=== PATIENT | female | born 1970 | race Caucasian/White ===

== ENCOUNTER 2017-10-12 21:54 | Inpatient (IN) | payer OTHER ==
[~2017-10-12] VITALS: Ht 160 cm; Wt 110.0 kg
[2017-10-13] VITALS (8 sets, daily range): BP systolic 97–111; BP diastolic 53–71; PULSE 75–82; RESP 16–20; Ht 160 cm; Wt 110.0 kg
[2017-10-13] MEDS ORDERED: ONDANSETRON 4 MG TAB PO PRN (02:30)
[2017-10-13] MEDS ORDERED: NACL 0.9% 3 ML SYG IV SCH (02:30)
[2017-10-13] MEDS ORDERED: NITROGLYCERIN (SL) 0.4 MG TAB SL PRN (02:30)
[2017-10-13] MEDS ORDERED: morphine 2 MG INJ IV PRN (02:30)
[2017-10-13] MEDS ORDERED: ACETAMINOPHEN 325 MG TAB PO PRN (02:30)
[2017-10-13 03:04] LABS: BASOPHILS % 0.3 % (0.0-2.0); EOSINOPHILS # 0.2 10^3/ul (0.0-0.5); EOSINOPHILS % 1.6 % (0.0-7.0); HEMATOCRIT 36.9 % (37.0-47.0); HEMOGLOBIN 12.2 g/dl (12.0-16.0); LYMPHOCYTES # 3.1 10^3/ul (0.8-2.9); LYMPHOCYTES % 32.7 % (15.0-51.0); MEAN CORPUSCULAR HGB CONC 33.1 g/dl (32.0-37.0); MEAN CORPUSCULAR VOLUME 93.9 fl (82.0-101.0); MEAN PLATELET VOLUME 10.3 fl (7.4-10.4); MONOCYTE # 1.1 10^3/ul (0.3-0.9); MONOCYTES % 11.4 % (0.0-11.0); NEUTROPHILS % 53.7 % (39.0-77.0); PLATELET COUNT 262 10^3/UL (140-415); RED BLOOD COUNT 3.93 10^6/ul (4.20-5.40); WHITE BLOOD COUNT 9.4 10^3/ul (4.8-10.8)
[2017-10-13 03:22] LABS: CREATINE KINASE 25 IU/L (23-200)
[2017-10-13 03:24] LABS: ALBUMIN 3.7 g/dl (3.3-4.9); ALBUMIN/GLOBULIN RATIO 1.12; CALCIUM 9.4 mg/dl (8.4-10.2); CHOL/HDL RATIO 4.2 RATIO; CREATININE 0.85 mg/dl (0.44-1.00); MAGNESIUM 1.9 mg/dl (1.7-2.5); POTASSIUM 4.6 mmol/L (3.5-5.1)
[2017-10-13 03:57] LABS: CK-MB < 0.22 ng/ml (0.0-2.4); TROPONIN-I < 0.012 ng/ml (0.00-0.12)
[2017-10-13 04:06] LABS: THYROID STIMULATING HORMONE 2.58 MIU/L (0.465-4.680)
--- NOTE | 2017-10-13 06:51 | HP ---
Date/Time of Note Date/Time of Note DATE: 10/13/17 TIME: 06:35 Assessment/Plan VTE Prophylaxis VTE Prophylaxis Intervention: SCD's Lines/Catheters IV Catheter Type (from Nrs): Saline Lock Assessment/Plan Chief Complaint/Hosp Course This is a 47 year female being admitted to the telemetry floor for: #1 chest pain: Rule out ACS. At the current time patient's first set of troponins was negative at the transferring facility hospital. At the current time will order a second set of troponins and repeat in 6 hours. Will check echocardiogram. Will check a A1c, lipid panel, TSH. Will obtain an official 12 -lead EKG. Continue telemetry monitoring consider cardiology consultation #2 Left lower extremity swelling: At the current time she states that her swelling is resolved. Again we will recheck an echocardiogram. I will also order bilateral Doppler ultrasound she reported swelling around the calf area of the left leg patient is also morbidly obese. #3 morbid obesity: Again we will check a hemoglobin A1c, lipid panel, TSH. Encourage weight loss with diet and exercise. #4 DVT GI prolapse: Lovenox, no GI prophylaxis indicated Further treatment strategy will be implemented as per the clinical course Problems: HPI/ROS Admit Date/Time Admit Date/Time Oct 13, 2017 at 01:31 Hx of Present Illness Chief complaint: Chest pain This is a 47-year-old female who was transferred from [facility] after presenting there with chest pain. Patient states that on 10/12 at approximately 3 AM in the morning patient was awoken to substernal chest pressure. Patient states that the pressure lasted approximately an hour it did not radiate. She did not was going on at that time so she also got anxious from that. During that time as well she notes some left lower extremity swelling. Later to the day the patient remained bed and she was tired and she was discharged she just slept all morning. The pain has not returned since then. She denies any fevers. Her left lower extremity swelling has resolved. Allergies: NKDA Medications: None ROS Const: As per HPI Eyes : No pain discharge or redness or change in visual acuity ENT: No pain, sore throat, congestion, congestion, dysphagia or discharge Respiratory: No shortness of breath, cough, sputum, wheezing, or pleuritic pain Cardiovascular: As per HPI GI : no change in appetite, abdominal pain, nausea, vomiting, diarrhea, constipation, or change in the color his stool Genitourinary: No dysuria, hematuria, flank pain , discharge or CVA tenderness Musculoskeletal: No joint pain, back pain, neck pain, restricted range of motion in neck or joints Skin: No rash, bruising or hives Neuro: No headache, dizziness, syncope, seizure, focal weakness Endocrine: No polyuria, polydipsia, temperature intolerance Psych: No hallucination, depression, anxiety or suicidal ideation PMH/Family/Social Past Medical History Medical History: no pertinent history Past Surgical History 4 Family History Significant Family History: heart disease, diabetes Social History Alcohol Use: none Smoking Status: Never smoker Drug Use: none Exam/Review of Systems Vital Signs Vitals Vital Signs Date Time Temp Pulse Resp B/P Pulse Ox O2 Delivery O2 Flow Rate FiO2 10/13/17 04:09 82 10/13/17 04:00 98.9 16 97/53 95 10/13/17 02:05 Room Air Intake and Output 10/12/17 10/12/17 10/13/17 15:00 23:00 07:00 Intake Total 300 ml Balance 300 ml Exam Exam General: Patient is a morbidly obese female lying in bed in no acute distress HEENT: Atraumatic, normocephalic. The pupils are equal, round and reactive. Extraocular motor are intact Neck: Supple with full range of motion. No rigidity or meningismus Chest: Nontender Lungs: Clear to auscultation bilaterally no crackles rales or wheezing Heart: Normal S1-S2, Regular rhythm and rate. No murmur, S3, or S4 Abdomen: Soft , nontender, nondistended , bowel sounds are present. No guarding no rebound tenderness , No masses or organomegaly. No costovertebral temporal angle mass Extremities: Normal to inspection, no edema no cyanosis, no calf tenderness palpation of bilateral lower extremities Neurologic: Normal mental status, speech normal, cranial nerves II through XII are intact, motor and sensory are intact, no focal weakness Additional Comments Telemetry monitoring on arrival: Normal sinus rhythm approximately 73 bpm Labs Result Diagram: 10/13/1725210/13/17252 Medications Medications Current Medications Ondansetron HCl (Zofran Tab) 4 mg Q6H PRN PO NAUSEA AND/OR VOMITING; Start at 02:30 Aspirin (Aspirin) 81 mg DAILY PO ; Start 10/13/17 at 09:00 Nitroglycerin (Nitroglycerin (Sl Tab) 0.4 Mg) 1 tab Q5M PRN SL CHEST PAIN; Start 10/13/17 at 02:30 Acetaminophen (Tylenol Tab) 650 mg Q6H PRN PO PAIN LEVEL 1-3 OR FEVER; Start 10/13/17 at 02:30 Morphine Sulfate (morphine) 2 mg Q4H PRN IV PAIN LEVEL 7-10; Start 10/13/17 at 02:30 MATT WILDE Oct 13, 2017 06:46
--- NOTE | 2017-10-13 08:27 | RADRPT ---
PROCEDURE: US Lower extremity Venous. CLINICAL INDICATION: Bilateral lower extremity edema , chest pain TECHNIQUE: Multiple sonographic images of the bilateral lower extremity deep venous system was obt ained utilizing grayscale, color-flow, compressive sonography and doppler imaging with augmentation. The images were reviewed on a PACS workstation. COMPARISON: None. FINDINGS: There is normal compressibility and flow within the bilateral common femoral, femoral , posterior ti bial and popliteal veins. RPTAT: AA IMPRESSION: No sonographic evidence for deep venous thrombosis. .Gabriel Tan MD, MD Date Time Electronically viewed and signed by .Gabriel Tan MD, MD on 10/13/2017 08:27 .S/
[2017-10-13] MEDS ORDERED: ASPIRIN 81 MG TAB PO SCH (09:00)
[2017-10-13] MEDS ORDERED: ENOXAPARIN 40 MG/0.4 ML SYG SC SCH (09:00)
[2017-10-13 09:11] LABS: CREATINE KINASE 23 IU/L (23-200)
--- NOTE | 2017-10-13 09:20 | RADRPT ---
PROCEDURE: XR Chest. CLINICAL INDICATION: Chest pain TECHNIQUE: Single portable view of the chest was obtained. COMPARISON: None. FINDINGS: Cardiac/vascular structures: Normal cardiomediastinal silhouette. Pulmonary: Lungs are clear. No pleural effusion. No evidence of pneumothorax. Osseous structures: Normal Soft tissues: Normal IMPRESSION: No acute cardiopulmonary disease. RPTAT:AAJJ Physician Maxwell Date Time Electronically viewed and signed by Johnathon Calvillo Physician on 10/13/2017 09:20 /
[2017-10-13 09:22] LABS: CK-MB < 0.22 ng/ml (0.0-2.4)
[2017-10-13 09:43] LABS: TROPONIN-I < 0.012 ng/ml (0.00-0.12)
[2017-10-13] MEDS ORDERED: ACET325T40 PO (12:54)
--- NOTE | 2017-10-13 12:54 | PDOCDIS ---
Discharge Instructions DIAGNOSIS Discharge Diagnosis Atypical chest pain. GERD? CONDITION Patient Condition: Good HOME CARE INSTRUCTIONS: Special Diet: regular ACTIVITY: Activity Restrictions: Slowly Increase Activity Avoid heavy lifting FOLLOW UP/APPOINTMENTS Follow-up Plan Appointment primary 1 week ILSA WEEMS MD Oct 13, 2017 12:54
--- NOTE | 2017-10-13 12:59 | DS ---
Date/Time of Note Date/Time of Note DATE: 10/13/17 TIME: 12:55 Discharge Summary Admission/Discharge Info Admit Date/Time Oct 13, 2017 at 01:31 Discharge Date/Time Discharge Diagnosis Atypical chest pain. GERD? Patient Condition: Good Hx of Present Illness Chief complaint: Chest pain This is a 47-year-old female who was transferred from [facility] after presenting there with chest pain. Patient states that on 10/12 at approximately 3 AM in the morning patient was awoken to substernal chest pressure. Patient states that the pressure lasted approximately an hour it did not radiate. She did not was going on at that time so she also got anxious from that. During that time as well she notes some left lower extremity swelling. Later to the day the patient remained bed and she was tired and she was discharged she just slept all morning. The pain has not returned since then. She denies any fevers. Her left lower extremity swelling has resolved. Allergies: NKDA Medications: None Hospital Course This is a 47 year female being admitted to the telemetry floor for: #1 chest pain: Rule out ACS. At the current time patient's first set of troponins was negative at the transferring facility hospital. At the current time will order a second set of troponins and repeat in 6 hours. Will check echocardiogram. Will check a A1c, lipid panel, TSH. Will obtain an official 12 -lead EKG. Continue telemetry monitoring consider cardiology consultation #2 Left lower extremity swelling: At the current time she states that her swelling is resolved. Again we will recheck an echocardiogram. I will also order bilateral Doppler ultrasound she reported swelling around the calf area of the left leg patient is also morbidly obese. #3 morbid obesity: Again we will check a hemoglobin A1c, lipid panel, TSH. Encourage weight loss with diet and exercise. #4 DVT GI prolapse: Lovenox, no GI prophylaxis indicated 5. Prediabetes 6. Carpal tunnel syndrome? TSH ok. Further treatment strategy will be implemented as per the clinical course Addendum: Admitted for atypical chest pain. Ruled out for ACS via enzymes EKG symptoms. Troponins negative. Chest x-ray unremarkable. Patient stable no arrhythmias. Pain is resolved. She is stable and fit for discharge. States she had an unusually active day helping family members with serving meals. Additionally has been under a lot of financial stress with the holidays around the corner. I did advise some basic stress therapy options. To avoid stressors. In terms of risk factor modification. Has prediabetes recommend activity dietary long-term assistance. GERD? Empiric therapy for now. No warning signs. Follow-up Plan Appointment primary 1 week Primary Care Provider Care Physician No Primary Time spent on discharge: < 30 minutes Pending Labs Laboratory Tests Test 10/13/17 02:52 10/13/17 02:53 10/13/17 08:21 Creatine Kinase 25IU/L (23-200) 23IU/L (23-200) Creatine Kinase Index 0.9 1.0 Creatinine Kinase MB (Mass) < 0.22ng/ml (0.0-2.4) < 0.22ng/ml (0.0-2.4) Troponin I < 0.012ng/ml (0.00-0.12) < 0.012ng/ml (0.00-0.12) White Blood Count 9.410^3/ul (4.8-10.8) Red Blood Count 3.9310^6/ul (4.20-5.40) Hemoglobin 12.2g/dl (12.0-16.0) Hematocrit 36.9% (37.0-47.0) Mean Corpuscular Volume 93.9fl (82.0-101.0) Mean Corpuscular Hemoglobin 31.0pg (29.0-33.0) Mean Corpuscular Hemoglobin Concent 33.1g/dl (32.0-37.0) Red Cell Distribution Width 13.0% (11.5-14.5) Platelet Count 62350^3/UL (140-415) Mean Platelet Volume 10.3fl (7.4-10.4) Neutrophils % 53.7% (39.0-77.0) Lymphocytes % 32.7% (15.0-51.0) Monocytes % 11.4% (0.0-11.0) Eosinophils % 1.6% (0.0-7.0) Basophils % 0.3% (0.0-2.0) Nucleated Red Blood Cells % 0.0/100WBC (0.0-0.0) Neutrophils # 5.010^3/ul (1.6-7.5) Lymphocytes # 3.110^3/ul (0.8-2.9) Monocytes # 1.110^3/ul (0.3-0.9) Eosinophils # 0.210^3/ul (0.0-0.5) Basophils # 0.010^3/ul (0.0-0.1) Nucleated Red Blood Cells # 0.010^3/ul (0.0-0.0) Sodium Level 145mmol/L (135-144) Potassium Level 4.6mmol/L (3.5-5.1) Chloride Level 105mmol/L (97-110) Carbon Dioxide Level 31mmol/L (21-31) Anion Gap 14 (8-16) Blood Urea Nitrogen 17mg/dl (7-20) Creatinine 0.85mg/dl (0.44-1.00) Glucose Level 127mg/dl (70-220) Hemoglobin A1c 6.3% (0-5.9) Calcium Level 9.4mg/dl (8.4-10.2) Magnesium Level 1.9mg/dl (1.7-2.5) Total Bilirubin 0.0mg/dl (0.2-1.3) Direct Bilirubin 0.00mg/dl (0.00-0.20) Indirect Bilirubin 0.0mg/dl (0-1.1) Aspartate Amino Transf (AST/SGOT) 13IU/L (15-46) Alanine Aminotransferase (ALT/SGPT) 40IU/L (13-69) Alkaline Phosphatase 97IU/L (42-121) Total Protein 7.0g/dl (6.1-8.1) Albumin 3.7g/dl (3.3-4.9) Globulin 3.30g/dl (1.3-3.2) Albumin/Globulin Ratio 1.12 Triglycerides Level 264mg/dl (0-149) Cholesterol Level 161mg/dl (100-200) LDL Cholesterol, Calculated 70mg/dl HDL Cholesterol 38mg/dl (34-88) Cholesterol/HDL Ratio 4.2RATIO Thyroid Stimulating Hormone (TSH) 2.580MIU/L (0.465-4.680) LISA WEEMS MD Oct 13, 2017 12:59
[2017-10-13] MEDS ORDERED: FAMO20TA18 PO (13:00)
--- NOTE | 2017-10-13 13:40 | RADRPT ---
Echocardiogram Report Patient Name: ELIJAH TIERNEY Gender: Female Date: 1970 Study Date: 13-Oct-2017 Safety Investigator: Sebastian Ribeiro [facility] Location: [facility] Ref. Physician: MATT WILDE Quality: Technically Difficult Study Procedures: Transthoracic echocardiogram with complete 2D, M-Mode, and doppler examination. Indications: Chest Pain. 2D/M Mode Doppler Measurement Value Normal Ranges Measurement Value Normal Ranges LVIDd 2D 5.0 3.5 - 5.6 cm AV Peak Federico 1.2 m/sec LVIDs 2D 3.2 2.1 - 4.1 cm AV Peak PG 6.0 mmHg FS 2D 36.5 % LVOT Peak Federico 0.9 m/sec LVPWd 2D 0.9 0.6 - 1.1 cm LVOT Peak PG 3.0 mmHg IVSd 2D 1.0 0.6 - 1.1 cm MV E Peak Federico 0.8 m/sec IVS/LVPW 2D 1.0 MV A Peak Federico 0.5 m/sec AoR Diam 2D 2.9 2.0 - 3.7 cm MV E/A 1.6 LA/Ao 2D 1 0 - 1 MV Decel Time 201 msec EDV 2D 126.0 cm3 MV E/A 1.6 ESV 2D 32.2 cm3 LA Dimen 2D 3.8 2.3 - 4.0 cm Findings Left Ventricle: Normal left ventricular systolic function. Normal left ventricular cavity size. Normal left ventricular wall thickness. Ejection fraction is visually estimated at 60 %. Tissue Doppler/Mitral Doppler indices are within normal limits. Right Ventricle: Normal right ventricular size. Normal right ventricular systolic function. Left Atrium: The left atrium is normal in size. Right Atrium: The right atrium is normal in size. Mitral Valve: Normal appearance and function of the mitral valve with trace physiologic regurgitation. Aortic Valve: Normal appearance of the aortic valve. No significant aortic stenosis or insufficiency. Tricuspid Valve: Normal appearance of the tricuspid valve. Unable to obtain RVSP due to minimal presence of tricuspid regurgitation. There is trace tricuspid regurgitation. Pulmonic Valve: Pulmonic valve not well visualized. There is trace pulmonic regurgitation. Pericardium: Normal pericardium with no significant pericardial effusion. Aorta: Normal aortic root. IVC: Normal size and normal respiratory collapse consistent with normal right atrial pressure. Conclusions 1.Normal left ventricular systolic function. Normal left ventricular cavity size. Normal left ventricular wall thickness. Ejection fraction is visually estimated at 60 %. Tissue Doppler/Mitral Doppler indices are within normal limits. 2.No significant valvular stenosis or regurgitation seen. 3.Unable to obtain RVSP due to minimal presence of tricuspid regurgitation. Normal size and normal respiratory collapse consistent with normal right atrial pressure. Electronically Signed By: Job Ch 13-Oct-2017 13:39:33 -0800 Patient Name: ELIJAH TIERNEY Study Date: 13-Oct-2017 [id number]
--- NOTE | 2017-10-17 16:03 | RADRPT ---
Vent Rate: 72 bpm RR Interval: 0 msec [place] Interval: 132 msec QRS Duration: 84 msec QT Interval: 388 msec QTC Interval: 424 msec P-R-T [place]: 44 - 50 - 53 degrees Normal sinus rhythm Normal ECG Electronically Signed By: Slava Portillo [id number]
== END 2017-10-13 14:45 | disposition home or self-care (01) | DRG 313 ==
LOC: MS4 10-13 01:31
PROVIDERS: ADMIT Internal Medicine; ATTEND Internal Medicine
DX: R07.89 Other chest pain (principal); Z68.41 Body mass index [BMI] 40.0-44.9, adult; E66.01 Morbid (severe) obesity due to excess calories; M79.89 Other specified soft tissue disorders; R73.03 Prediabetes; G56.00 Carpal tunnel syndrome, unspecified upper limb; Z59.8 Other problems related to housing and economic circumstances; K21.9 Gastro-esophageal reflux disease without esophagitis
CPT/HCPCS: 71010; 80053; 80061; 82550; 82553; 83036; 83735; 84443; 84484; 85025; 93005; 93306; 93970; J1650